=== PATIENT | female | born 1975 | race Caucasian/White ===

== ENCOUNTER 2018-02-24 08:04 | Day surgery (SDC) | payer OTHER ==
[2018-02-24] MEDS: NA PHOSPHATE/BIPHOS 133 ML ENEMA PR (08:45)
[2018-02-24] MEDS: BISACODYL 10 MG SUPP PR (08:45)
[2018-02-24] MEDS: LIDOCAINE 2% JELLY 5 ML TOP (08:47)
[2018-02-24] MEDS: morphine 4 MG/ML VIAL IV ×2 (09:26→10:45)
[2018-02-24] MEDS: ONDANSETRON 4 MG INJ IV ×2 (09:26→17:04)
[2018-02-24] MEDS: SOD CHLORIDE 0.9% 1,000 ML IV (09:26)
[2018-02-24 09:27] LABS: ADD MAN DIFF? NO
[2018-02-24 09:32] LABS: BASOPHIL # 0.1 10^3/ul (0.0-0.1); BASOPHILS % 0.7 % (0.0-2.0); EOSINOPHILS # 0.1 10^3/ul (0.0-0.5); EOSINOPHILS % 1.1 % (0.0-7.0); HEMATOCRIT 36.4 % (37.0-47.0); HEMOGLOBIN 11.7 g/dl (12.0-16.0); LYMPHOCYTES # 2.2 10^3/ul (0.8-2.9); LYMPHOCYTES % 29.5 % (15.0-51.0); MEAN CORPUSCULAR HGB CONC 32.1 g/dl (32.0-37.0); MEAN CORPUSCULAR VOLUME 84.1 fl (82.0-101.0); MEAN PLATELET VOLUME 9.9 fl (7.4-10.4); MONOCYTE # 0.5 10^3/ul (0.3-0.9); MONOCYTES % 6.8 % (0.0-11.0); NEUTROPHIL # 4.5 10^3/ul (1.6-7.5); NEUTROPHILS % 61.5 % (39.0-77.0); PLATELET COUNT 388 10^3/UL (140-415); RED BLOOD COUNT 4.33 10^6/ul (4.20-5.40)
[2018-02-24 09:32] LABS: WHITE BLOOD COUNT 7.3 10^3/ul (4.8-10.8)
[2018-02-24 09:49] LABS: ALANINE AMINOTRANSFERASE 24 IU/L (13-69); ALBUMIN 4.4 g/dl (3.3-4.9); ALBUMIN/GLOBULIN RATIO 1.18; ALKALINE PHOSPHATASE 60 IU/L (42-121); ANION GAP 15 (8-16); ASPARTATE AMINO TRANSFERASE 22 IU/L (15-46); BILIRUBIN,INDIRECT 0.4 mg/dl (0-1.1); BILIRUBIN,TOTAL 0.4 mg/dl (0.2-1.3); BLOOD UREA NITROGEN 7 mg/dl (7-20); CALCIUM 9.2 mg/dl (8.4-10.2); CARBON DIOXIDE 25 mmol/L (21-31); CHLORIDE 104 mmol/L (97-110); CREATININE 0.69 mg/dl (0.44-1.00); GLUCOSE 98 mg/dl (70-220); LIPASE 49 U/L (23-300); POTASSIUM 3.9 mmol/L (3.5-5.1); SODIUM 140 mmol/L (135-144); TOTAL PROTEIN 8.1 g/dl (6.1-8.1)
[2018-02-24] MEDS: KETOROLAC 30 MG INJ IV (10:54)
[2018-02-24 11:22] LABS: ADD UMIC NO; UR ASCORBIC ACID NEGATIVE (NEGATIVE); UR BILIRUBIN (Dip) NEGATIVE (NEGATIVE); UR BLOOD (Dip) NEGATIVE (NEGATIVE); UR CLARITY CLEAR (CLEAR); UR COLOR STRAW (YELLOW); UR GLUCOSE (Dip) NEGATIVE (NEGATIVE); UR KETONES (Dip) NEGATIVE (NEGATIVE); UR LEUKOCYTE ESTERASE (Dip) NEGATIVE Leu/ul (NEGATIVE); UR NITRITE (Dip) NEGATIVE (NEGATIVE); UR SPECIFIC GRAVITY (Dip) 1.003 (1.003-1.030); UR TOTAL PROTEIN (Dip) NEGATIVE (NEGATIVE); UR UROBILINOGEN (Dip) NEGATIVE (NEGATIVE)
[2018-02-24] MEDS: IOHEXOL 300MG/ML 150 ML BTL (14:48)
[2018-02-24] MEDS: SOD CHLORIDE 0.9% 100 ML (14:48)
[2018-02-24] MEDS ORDERED: HYDROmorphONE 2 MG/ML SYG IV (16:38)
[2018-02-24] MEDS: HYDROmorphONE 1 MG/ML SYG IV (17:04)
[2018-02-24] MEDS: PIPER-TAZO 3.375 GM IV (PMX) 100 ML IVPB (17:16)
[2018-02-24] MEDS: LACTATED RINGER'S 1,000 ML IV (17:17)
[2018-02-24] MEDS ORDERED: SOD CHLORIDE 0.9% 1,000 ML IV ×2 (17:31)
[2018-02-24] MEDS ORDERED: ONDANSETRON 4 MG INJ IV ×3 (18:00→19:30)
[2018-02-24] MEDS ORDERED: morphine 2 MG INJ IV (18:00)
[2018-02-24] MEDS ORDERED: MAGNESIUM HYDROXIDE 30ML CUP PO (18:00)
[2018-02-24] MEDS ORDERED: NACL 0.9% 3 ML SYG IV (18:00)
[2018-02-24] MEDS ORDERED: DOCUSATE SODIUM 100 MG CAP PO (18:00)
[2018-02-24] MEDS ORDERED: ACETAMINOPHEN 325 MG TAB PO ×2 (18:00)
[2018-02-24] MEDS ORDERED: BISACODYL 10 MG SUPP PR (18:00)
[2018-02-24] MEDS ORDERED: NA PHOSPHATE/BIPHOS 133 ML ENEMA PR (18:00)
[2018-02-24] MEDS ORDERED: PROPOFOL 20 ML ×2 (19:24→19:37)
[2018-02-24] MEDS ORDERED: FENTAnyl 50 MCG/ML VIAL (19:24)
[2018-02-24] MEDS ORDERED: MIDAZOLAM 1 MG/ML 2 ML INJ (19:24)
[2018-02-24] MEDS ORDERED: METOCLOPRAMIDE 10 MG INJ IV (19:30)
[2018-02-24] MEDS ORDERED: FENTAnyl 50 MCG/ML VIAL IV ×2 (19:30)
[2018-02-24] MEDS ORDERED: EPHEDrine SULFATE 50 MG/5 ML SYG IV (19:30)
[2018-02-24] MEDS ORDERED: MEPERIDINE 25 MG INJ IV (19:30)
[2018-02-24] MEDS ORDERED: HYDROmorphONE 1 MG/5 ML IV SYRINGE IV ×2 (19:30)
[2018-02-24] MEDS ORDERED: DIPHENHYDRAMINE 50 MG INJ IV (19:30)
[2018-02-24] MEDS ORDERED: METOCLOPRAMIDE 10 MG INJ (19:37)
[2018-02-24] MEDS ORDERED: DEXAMETHASONE 4 MG/ML 1 ML INJ (19:37)
[2018-02-24] MEDS ORDERED: KETOROLAC 30 MG INJ (19:37)
[2018-02-24] MEDS ORDERED: ONDANSETRON 4 MG INJ (19:37)
[2018-02-24] MEDS ORDERED: FAMOTIDINE 20 MG INJ IV (21:00)
== END 2018-02-28 | disposition home or self-care (01) ==
LOC: FTE 08:04 → SDS 02-28 17:32 → REC 17:32
DX: K56.41 Fecal impaction (principal)
CPT/HCPCS: 36415; 74177; 76801; 80053; 81003; 83690; 84702; 85025; 96374; 96375; 96376; 99285-25